=== PATIENT | female | born 1990 | race Caucasian/White ===

== ENCOUNTER 2023-03-12 17:00 | Inpatient (IN) | payer BC ==
[2023-03-12 19:00] VITALS: BMI 30.9
[2023-03-12] MEDS ORDERED: DINOPROSTONE 10 MG VAGINAL SUPPOSITORY VG ONE (19:30)
[2023-03-12 19:37] LABS: EOS % 1.6 % (0-4.5); HEMATOCRIT 37.3 % (32.4-45.2); HEMOGLOBIN 11.8 GM/dL (10.7-15.3); LYMPH % 12.3 % (8-40); MCH 25.9 pg (25.7-33.7); MCHC 31.6 g/dl (32.0-36.0); MEAN CELL VOLUME 81.8 fl (80-96); MEAN PLT VOLUME 9.6 fl (7.5-11.1); MONO % 8.5 % (3.8-10.2); NEUT % 76.6 % (42.8-82.8); PLATELET COUNT 238 10^3/uL (134-434); RBC 4.56 M/mm3 (3.60-5.2); RDW 16.6 % (11.6-15.6); WHITE BLOOD COUNT 12.8 K/mm3 (4.0-10.0)
[2023-03-12 19:46] LABS: INR 0.96 (0.83-1.09); PROTHROMBIN TIME (PATIENT) 11.1 SEC (9.7-13.0)
[2023-03-12 19:48] LABS: ACTIVATED PTT 25.5 SECONDS (25.2-36.5)
[2023-03-12 19:50] LABS: POTASSIUM 4.4 mmol/L (3.5-5.1)
[2023-03-12 19:53] LABS: CALCIUM 9.5 mg/dL (8.5-10.1)
[2023-03-12 19:55] LABS: CREATININE 0.8 mg/dL (0.55-1.3)
[2023-03-12] MEDS: ELECTROLYTE-148 SOLN 1,000 ML IV SCH (20:45)
[2023-03-13] MEDS ORDERED: FENTANYL/BUPIVACAINE/NS/PF - PCEA - 50 ML DISP.SYRIN EP ONE ×6 (01:52→21:13)
[2023-03-13] MEDS ORDERED: LIDO 2%/EPI 1:200000 PRESRVFRE (20 ML SDVIAL) ONE (01:54)
[2023-03-13] MEDS ORDERED: BUPIVACAINE HCL/PF 0.25% (2.5MG/ML) 10 ML VIAL ONE ×3 (01:54→19:44)
[2023-03-13] MEDS: FENTANYL/BUPIVACAINE/NS/PF - PCEA - 50 ML DISP.SYRIN EP SCH ×6 (02:15→21:15)
[2023-03-13] MEDS ORDERED: NALOXONE HCL 0.4 MG/ML VIAL IVPUSH PRN (02:22)
[2023-03-13] MEDS: ELECTROLYTE-148 SOLN 1,000 ML IV SCH ×2 (10:00→18:00)
[2023-03-13] MEDS ORDERED: OXYTOCIN 30 UNITS in 0.9% NS 30 UNIT/500 ML INFUS.BAG IVPB ONE (10:13)
[2023-03-13] MEDS ORDERED: OXYTOCIN 30 UNITS in 0.9% NS 30 UNIT/500 ML INFUS.BAG IVPB SCH (10:45)
[2023-03-13] MEDS ORDERED: FENTANYL CITRATE/PF 50 MCG/ML VIAL ONE ×2 (17:39→19:43)
[2023-03-13] MEDS ORDERED: LIDOCAINE HCL 1% PRESERVATIVE FREE - 30ML VIAL ONE (23:48)
[2023-03-13] MEDS ORDERED: OXYTOCIN 20 UNITS in 0.9% NS 20 UNIT/1,000 ML INFUS.BAG IV ONE (23:48)
[2023-03-14] MEDS ORDERED: WITCH HAZEL 50% (TUCKS) 40 PAD/JAR PAD TP PRN (01:06)
[2023-03-14] MEDS ORDERED: BENZOCAINE 28 GM HEMORRHOIDAL OINTMENT TP PRN (01:06)
[2023-03-14] MEDS ORDERED: ACETAMINOPHEN 325 MG TABLET (FP) PO PRN (01:06)
[2023-03-14] MEDS ORDERED: oxyCODONE HCL 5 MG TABLET PO PRN (01:06)
[2023-03-14] MEDS ORDERED: METHYLERGONOVINE MALEATE 0.2 MG/1 ML AMP IM PRN (01:06)
[2023-03-14] MEDS ORDERED: BENZOCAINE 20% 57 GM BOTTLE TP PRN (01:06)
[2023-03-14] MEDS ORDERED: BISACODYL 10 MG SUPP.RECT RC PRN (01:06)
[2023-03-14] MEDS ORDERED: OXYTOCIN 20 UNITS in 0.9% NS 20 UNIT/1,000 ML INFUS.BAG IV SCH (01:15)
[2023-03-14] MEDS ORDERED: oxyCODONE HCL 5 MG TABLET ONE (01:34)
[2023-03-14] MEDS: IBUPROFEN 600 MG TABLET (FP) PO PRN ×2 (03:31→09:02)
[2023-03-14] MEDS: FENTANYL/BUPIVACAINE/NS/PF - PCEA - 50 ML DISP.SYRIN EP SCH (08:01)
[2023-03-15 07:33] LABS: BASO % 0.4 % (0-2.0); HEMOGLOBIN 9.6 GM/dL (10.7-15.3); LYMPH % 15.2 % (8-40); MCH 26.2 pg (25.7-33.7); MCHC 31.8 g/dl (32.0-36.0); MEAN CELL VOLUME 82.3 fl (80-96); MEAN PLT VOLUME 9.4 fl (7.5-11.1); MONO % 8.7 % (3.8-10.2); NEUT % 73.7 % (42.8-82.8); PLATELET COUNT 214 10^3/uL (134-434); RBC 3.65 M/mm3 (3.60-5.2); RDW 16.5 % (11.6-15.6); WHITE BLOOD COUNT 15.9 K/mm3 (4.0-10.0)
[2023-03-15] MEDS: FERROUS SO4 325 MG TABLET (FP) PO SCH (19:28)
[2023-03-15] MEDS: IBUPROFEN 600 MG TABLET (FP) PO PRN (19:29)
[2023-03-15] MEDS ORDERED: SENNOSIDES/DOCUSATE COMBO (SENNA PLUS) TABLET (UD) PO PRN (22:00)
[2023-03-16] MEDS: IBUPROFEN 600 MG TABLET (FP) PO PRN (06:20)
[2023-03-16] MEDS: FERROUS SO4 325 MG TABLET (FP) PO SCH (09:07)
[2023-03-16 10:08] VITALS: BP 107/75; PULSE 86; RESP 18; TEMP 98.1
== END 2023-03-16 11:51 | disposition home or self-care (01) | DRG 807 ==
LOC: JLDR 17:00 → J3W 03-14 03:04
PROVIDERS: ADMIT Specialist; ATTEND Student in an Organized Health Care Education/Training Program
PROC: 3E0P7VZ Introduction of Hormone into Female Reproductive, Via Natural or Artificial Opening (ICD-10-PCS; 2023-03-12)
PROC: 10D07Z6 Extraction of Products of Conception, Vacuum, Via Natural or Artificial Opening (ICD-10-PCS; principal; 2023-03-14)
PROC: 0W8NXZZ Division of Female Perineum, External Approach (ICD-10-PCS; 2023-03-14)
DX: O48.0 Post-term pregnancy (principal); Z37.0 Single live birth; Z3A.40 40 weeks gestation of pregnancy
CPT/HCPCS: 36415; 80048; 85025; 85610; 85730; 86780; 86850; 86900; 86901